=== PATIENT | female | born 1960 | race Caucasian/White ===

== ENCOUNTER → 2020-04-10 14:22 | Outpatient (CLI) | payer OTHER, SELFPAY ==
--- NOTE | 2020-04-10 | DI.MRI.S_ITS ---
PROCEDURE: MR LUMBAR SPINE WO CON INDICATIONS: DORSALGIA TECHNIQUE: Noncontrast sagittal T1 spin echo and T2 fast echo, sagittal STIR, axial T1 and T2 fast spin echo through the lumbar spine. In cases with scoliosis, additional coronal T2 fast spin echo may be performed. COMPARISON: [facility] Outside Film, CR, XR LUMBAR SPINE 2 OR 3 VIEWS, 02/16/2020, 14:28. [facility] Outside Film, CR, XR LUMBAR SPINE 2 OR 3 VIEWS, 02/16/2020, 14:33. FINDINGS: Image quality: Excellent. Alignment and Curvature: 5 lumbar type vertebral bodies are present by plain film. There is mild, grade 1 retrolisthesis of L5 on S1. Bone Marrow: Marrow is of normal overall signal. No acute vertebral body compression fractures. Moderate reactive signal within the endplates adjacent to the L5-S1 intervertebral disc. Spinal Cord: Conus medullaris terminates at the L1-L2 disc space level. Visualized cord demonstrates normal signal and size. Paraspinous Soft Tissues: No paravertebral masses. T12-L1: Normal appearance. L1-L2: Normal appearance. L2-L3: Mild disc desiccation. No significant canal, or foraminal stenosis. L3-L4: Mild disc desiccation. Mild facet and ligamentum flavum hypertrophy bilaterally. Mild canal stenosis. Mild bilateral foraminal stenosis. L4-L5: Mild disc desiccation and diffuse disc bulge. Mild bilateral facet hypertrophy. Mild canal stenosis. Mild bilateral foraminal stenosis. L5-S1: Moderate disc height loss and desiccation. Mild diffuse disc bulge with superimposed right paracentral broad-based protrusion. Mild bilateral facet hypertrophy. Mild canal stenosis. Moderate bilateral foraminal stenosis. IMPRESSION: 1. Multilevel degenerative disc and facet disease, as well as ligamentum flavum hypertrophy and epidural lipomatosis. 2. Mild multilevel canal stenoses. 3. Multilevel foraminal stenoses, worst at L5-S1 where there is moderate foraminal stenosis bilaterally. Dictated by: Mihir Ramos M.D. on 04/10/2020 at 16:24 Approved by: Mihir Ramos M.D. on 04/10/2020 at 16:27
== END ==
PROVIDERS: PCP Nurse Practitioner Family; Referring Provider Nurse Practitioner Family; Visit Provider Nurse Practitioner Family
DX: M54.9 Dorsalgia, unspecified (principal); M47.816 Spondylosis without myelopathy or radiculopathy, lumbar region; M47.817 Spondylosis without myelopathy or radiculopathy, lumbosacral region; M48.061 Spinal stenosis, lumbar region without neurogenic claudication; M48.07 Spinal stenosis, lumbosacral region
CPT/HCPCS: 72148; Q9967

== ENCOUNTER → 2020-04-12 14:33 | Outpatient (CLI) | payer OTHER, SELFPAY ==
--- NOTE | 2020-04-12 | DI.MRI.S_ITS ---
PROCEDURE: MR FEMUR RT WO CON INDICATIONS: PAIN IN RIGHT UPPER LEG TECHNIQUE: Noncontrast coronal and sagittal T1 spin echo and STIR; axial T1 spin echo and T2 fast spin echo with fat saturation through the right femur. COMPARISON: None. FINDINGS: Image quality: Excellent. Bones: The visualized bone marrow demonstrates normal overall signal. No bone contusions or fractures. No bone marrow edema or suspicious intraosseous lesions. No bony erosions or periosteal reaction. Soft tissues: The scanned muscles demonstrate normal overall bulk and internal signal. There is mild peritendinous edema along the distal gluteus medius and minimus tendons at the greater trochanter consistent with peritendinitis. No discrete bursal fluid collection. IMPRESSION: 1. No bone contusions or fractures. 2. No suspicious intraosseous lesions. 3. No muscle strains identified. 4. Mild peritendinitis along the gluteal tendons at the greater trochanter. Dictated by: Mukesh Mcgowan M.D. on 04/12/2020 at 17:20 Approved by: Mukesh Mcgowan M.D. on 04/12/2020 at 17:31
== END ==
PROVIDERS: PCP Nurse Practitioner Family; Referring Provider Nurse Practitioner Family; Visit Provider Nurse Practitioner Family
DX: M79.604 Pain in right leg (principal); M76.01 Gluteal tendinitis, right hip
CPT/HCPCS: 73718

== ENCOUNTER → 2021-05-01 14:46 | Outpatient (CLI) | payer OTHER, SELFPAY ==
--- NOTE | 2021-05-01 | DI.MG.S_ITS ---
BILATERAL DIGITAL SCREENING MAMMOGRAM 3D/2D WITH CAD WITH AUGMENTATION: 05/01/2021 CLINICAL: Patient presents for routine screening. S/P bilateral augmentation. Comparison is made to exams dated: 10/12/2018 mammogram, 11/27/2016 mammogram, and 07/13/2015 mammogram - outside location. There are scattered fibroglandular elements in both breasts. Current study was also evaluated with a Computer Aided Detection (CAD) system. Bilateral breast implants are intact. There are benign calcifications in both breasts. No significant masses, calcifications, or other findings are seen in either breast. There has been no significant interval change. IMPRESSION: BENIGN There is no mammographic evidence of malignancy. A 1 year screening mammogram is recommended. This exam was interpreted at Station ID: [id number]. NOTE: For mammograms, a report in lay terms will be sent to the patient. Approximately 15% of breast malignancies will not be visualized mammographically. In the management of a palpable breast mass, a negative mammogram must not discourage biopsy of a clinically suspicious lesion. Electronically Signed By: Salvatore Holloway acr/penrad:05/01/2021 15:34:54 letter sent: Normal Exam ACR BI-RADS Category 2: Benign Finding(s) 3342F
== END ==
PROVIDERS: PCP Nurse Practitioner Family; Referring Provider Nurse Practitioner Family; Visit Provider Nurse Practitioner Family
DX: Z12.31 Encounter for screening mammogram for malignant neoplasm of breast (principal); Z98.82 Breast implant status
CPT/HCPCS: 77063; 77067